=== PATIENT | male | born 1980 ===

== ENCOUNTER 2018-10-12 18:20 | Emergency (ER) | payer OTHER ==
[~2018-10-12] VITALS: Ht 175.3 cm; Wt 65.9 kg
[2018-10-12 18:23] VITALS: BP 128/88
== END 2018-10-12 19:08 | disposition home or self-care (01) ==
LOC: ER 18:20
DX: Z00.8 Encounter for other general examination (principal); F12.90 Cannabis use, unspecified, uncomplicated; F15.90 Other stimulant use, unspecified, uncomplicated; F14.90 Cocaine use, unspecified, uncomplicated; F11.90 Opioid use, unspecified, uncomplicated; Z72.89 Other problems related to lifestyle
CPT/HCPCS: 99281